=== PATIENT | female | born 2000 | race Caucasian/White ===

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

== ENCOUNTER 2021-03-05 20:07 | Emergency (ER) | payer OTHER ==
[~2021-03-05 20:07] MED LIST: BENTYL 20MG TAB20 MG PO; CEFUROXIME500 MG PO; COLACE 100MG C100 MG PO; IBUPROFEN600 MG PO; LORTAB 5-325 M1 EACH PO; MACROBID 100 M100 MG PO; REGLAN10 MG PO; ZOFRAN4 MG PO
[2021-03-05 21:19] LABS: HEMOGLOBIN 13.6 gm/dl (12.3-15.3); RED BLOOD COUNT 4.68 M/UL (4.00-5.10); WHITE BLOOD COUNT 8.8 K/UL (4.5-11.0)
[2021-03-05 21:55] LABS: BUN/CREATININE RATIO 9 (0-10)
== END 2021-03-05 21:27 | disposition left against medical advice (07) ==
LOC: ER1 20:07
PROVIDERS: Nurse Practitioner
DX: K80.50 Calculus of bile duct without cholangitis or cholecystitis without obstruction (principal)
CPT/HCPCS: 80053; 83690; 84703; 85025; 96374; 96375; 99284; J1885; J2270; J2405